=== PATIENT | female | born 1960 | race Caucasian/White ===

== ENCOUNTER 2016-06-26 12:52 | Day surgery (SDC) | payer OTHER ==
[2016-06-26] MEDS ORDERED: Lidocaine Topical 2% 30 mL Jelly ONE (13:10)
== END 2016-06-26 23:59 | disposition home or self-care (01) ==
LOC: END 12:52
PROVIDERS: ATTEND Internal Medicine Gastroenterology
DX: K21.0 Gastro-esophageal reflux disease with esophagitis (principal); K22.4 Dyskinesia of esophagus